=== PATIENT | male | born 1970 | race Caucasian/White ===

== ENCOUNTER 2020-12-19 14:54 | Outpatient (RCR) | payer OTHER ==
[~2020-12-19 14:54] MED LIST: NORVASC 5MG5 MG/TAB PO; ZESTORETIC 12.51 TAB PO
== END 2021-02-20 | disposition home or self-care (01) ==
LOC: WSOH
DX: S61.411A Laceration without foreign body of right hand, initial encounter (principal); I10 Essential (primary) hypertension; F10.20 Alcohol dependence, uncomplicated; Y99.0 Civilian activity done for income or pay